=== PATIENT | female | born 1970 | race Caucasian/White ===

== ENCOUNTER → 2017-10-13 15:06 | Outpatient (CLI) | payer BC, SELFPAY ==
--- NOTE | 2017-10-13 15:53 | XR_ITS ---
XR foot RT min 3V HISTORY: ITS.REASON: Right heel pain ORDERING PHYSICIAN: PATTY Diaz PATIENT AGE: 46 years COMPARISON: None FINDINGS: No fracture or dislocation. No lytic or blastic change. There is normal mineralization.. The joint spaces are well-preserved. No significant degenerative/arthritic changes. No erosive changes evident. IMPRESSION: Negative, no acute finding
[2017-10-13 17:32] LABS: Basophils % 0.6 % (0.1-2.0); Eosinophils # 0.4 K/mm3 (0.0-0.4); Eosinophils % 5.7 % (0.1-12.0); Hematocrit 44.5 % (37.0-47.0); Hemoglobin 13.9 g/dL (12.2-16.2); Lymphocytes # 2.2 K/mm3 (0.7-4.5); Lymphocytes % 31.6 K/mm3 (10-50); Mean Corpuscular HGB Conc 31.2 g/dL (31.8-35.4); Mean Corpuscular Hemoglobin 27.7 pg (27.0-31.2); Mean Corpuscular Volume 88.8 fl (81-99); Monocytes # 0.5 K/mm3 (0.1-1.0); Monocytes % 6.5 % (1.7-9.3); Neutrophils % 55.6 % (37.0-80.0); Platelet Count 377 K/mm3 (142-424); Red Blood Count 5.01 M/mm3 (4.20-5.40); Red Cell Distribution Width 13.3 % (11.5-17.5); White Blood Count 7.1 K/mm3 (4.8-10.8)
[2017-10-13 18:16] LABS: Alanine Aminotransferase 20 U/L (12-78); Albumin Level 3.5 gm/dL (3.4-5.0); Albumin/Globulin Ratio 0.9 (1.1-1.8); Alkaline Phosphatase 71 U/L (46-116); Aspartate Amino Transferase 20 U/L (15-37); Bilirubin,Total 0.3 mg/dL (0.2-1.0); Blood Urea Nitrogen 9 mg/dL (7-18); Calcium 9.2 mg/dL (8.5-10.1); Carbon Dioxide 29 mmol/L (21.0-32.0); Chloride 102 mmol/L (98-107); Cholesterol 208 mg/dL (140-200); Creatinine,Serum 0.71 mg/dL (0.55-1.02); Estimated Glomerular Filt Rate 88 ml/min (>60); GFR (African American) 106 ML/MIN (>60); Globulin 3.7 gm/dl (1.3-3.2); Glucose 96 mg/dL (74-106); HDL Cholesterol 52 mg/dL (29-89); LDL Cholesterol 142 mg/dL (0-130); Sodium 139 mmol/L (136-145); Thyroid Stimulating Hormone 2.03 uIU/ml (0.358-3.740); Total Protein,Serum 7.2 gm/dL (6.4-8.2); Triglycerides 69 mg/dL (30-200); VLDL Cholesterol 14 mg/dL (0-40)
[2017-10-15 11:17] LABS: Vitamin D 25 Hydroxy 33.9 ng/mL (30.0-100.0)
== END ==
PROVIDERS: PCP Physician Assistant; Visit Provider Physician Assistant
DX: R05 Cough (principal); M79.671 Pain in right foot; E66.9 Obesity, unspecified; Z79.899 Other long term (current) drug therapy
CPT/HCPCS: 73630; 80053; 80061; 82652; 84436; 84443; 85025

== ENCOUNTER → 2018-11-29 13:11 | Outpatient (CLI) | payer BC, SELFPAY ==
--- NOTE | 2018-11-29 13:12 | CT_ITS ---
CT head/brain wo con HISTORY: ITS.REASON: headaches ORDERING PHYSICIAN: PATTY Clark PATIENT AGE: 48 years COMPARISON: None TECHNIQUE: Axial images obtained without contrast. Brain and bone windows reviewed. All CT scans at the facility use one or more dose reduction, viz: automated exposure control, ma/kV adjustment per patient size (including targeted exams where dose is matched to indication, i.e. head), or iterative reconstruction technique. FINDINGS: No midline shift, mass effect, intracranial hemorrhage, hydrocephalus, or extra-axial fluid collection is evident. The calvarium has an unremarkable appearance. No mastoid effusion. No sinus air-fluid levels.. IMPRESSION: Negative CT head without contrast. No acute finding
== END ==
PROVIDERS: PCP Physician Assistant; Visit Provider Physician Assistant
DX: R51 Headache (principal)
CPT/HCPCS: 70450

== ENCOUNTER → 2022-03-18 10:16 | Outpatient (CLI) | payer BC, SELFPAY ==
--- NOTE | 2022-03-18 10:19 | MM_ITS ---
PROCEDURE INFORMATION: Exam: Bilateral Screening 3D Mammography Exam date and time: 03/18/2022 10:17 AM Age: 51 years old Clinical indication: Screening examination TECHNIQUE: Imaging protocol: Bilateral Screening tomosynthesis and 2D mammography including computer-aided detection (CAD) when performed. COMPARISON: [facility] DIGITAL SCREEN BILATERAL 10/13/2018 8:59 AM FINDINGS: MAMMOGRAPHY: Breast composition: The breasts are almost entirely fatty. Mass: None. Architectural distortion: None. Calcifications: No suspicious calcifications. Asymmetric density: None. Skin thickening: None. Axillary adenopathy: None. IMPRESSION: No mammographic evidence of malignancy. Annual screening is recommended unless otherwise clinically indicated. ASSESSMENT: BI-RADS Category 1: Negative
== END ==
PROVIDERS: PCP Physician Assistant; Visit Provider Pediatrics
DX: Z12.31 Encounter for screening mammogram for malignant neoplasm of breast (principal)
CPT/HCPCS: 77063; 77067

== ENCOUNTER → 2022-04-21 14:20 | Outpatient (CLI) | payer BC, SELFPAY ==
[2022-04-21 14:33] LABS: Amphetamine/Metha Screen,Urine Positive ng/ml (<1000); Barbiturates Screen,Urine Negative ng/ml (<200)
[2022-04-21 14:34] LABS: Benzodiazepines Screen,Urine Negative ng/ml (<200)
[2022-04-21 14:35] LABS: Cannabinoid Screen,Urine Negative ng/ml (<50); Cocaine Screen,Urine Negative ng/ml (<300)
[2022-04-21 14:36] LABS: Methadone Screen,Urine Negative ng/ml (<300); Opiate Screen,Urine Negative ng/ml (<300)
[2022-04-21 14:37] LABS: Phencyclidine Screen,Urine Negative ng/ml (<25)
== END ==
PROVIDERS: PCP Physician Assistant; Visit Provider Physician Assistant
DX: F90.9 Attention-deficit hyperactivity disorder, unspecified type (principal)
CPT/HCPCS: 80305

== ENCOUNTER → 2022-05-20 10:34 | Outpatient (CLI) | payer BC, SELFPAY ==
--- NOTE | 2022-05-20 10:45 | XR_ITS ---
FINAL REPORT CLINICAL HISTORY: left elbow pain s/p fall FINDINGS: Left elbow Three views were obtained. There is no acute fracture or dislocation. No joint effusion is identified. The joint spaces appear normal. No soft tissue abnormality is identified. IMPRESSION: No acute process. Reviewed, Interpreted and Dictated by Pedro Pablo Subramanian III, MD Transcribed by Zoe Dent Authenticated and [facility]
== END ==
LOC: RAD 10:35
PROVIDERS: PCP Physician Assistant; Visit Provider Physician Assistant
DX: M25.522 Pain in left elbow (principal)
CPT/HCPCS: 73080

== ENCOUNTER → 2022-09-09 10:06 | Outpatient (CLI) | payer BC, SELFPAY ==
[2022-09-09 14:13] LABS: Basophils % 0.3 % (0.1-2.0); Eosinophils # 0.2 K/mm3 (0.0-0.4); Eosinophils % 1.9 % (0.1-12.0); Hematocrit 44.4 % (37.0-47.0); Hemoglobin 14.4 g/dL (12.2-16.2); Lymphocytes # 2.7 K/mm3 (0.7-4.5); Lymphocytes % 26.7 % (10-50); Mean Corpuscular HGB Conc 32.5 g/dL (31.8-35.4); Mean Corpuscular Hemoglobin 28.2 pg (27.0-31.2); Mean Corpuscular Volume 86.7 fl (81-99); Mean Platelet Volume 8.9 fl (7.4-10.4); Monocytes # 0.5 K/mm3 (0.1-1.0); Monocytes % 4.5 % (1.7-9.3); Neutrophils # 6.8 K/mm3 (1.8-7.8); Neutrophils % 66.9 % (37.0-80.0); Platelet Count 467 K/mm3 (142-424); Red Blood Count 5.12 M/mm3 (4.20-5.40); White Blood Count 10.2 K/mm3 (4.8-10.8)
[2022-09-09 14:21] LABS: Chloride 96 mmol/L (98-107); Potassium 4.4 mmoL/L (3.5-5.1); Sodium 138 mmol/L (136-145)
[2022-09-09 14:23] LABS: Alanine Aminotransferase 21 U/L (12-78); Aspartate Amino Transferase 29 U/L (14-36); Blood Urea Nitrogen 14 mg/dl (7-17); Estimated Glomerular Filt Rate 88 ml/min (>60); GFR (African American) 106 ML/MIN (>60)
[2022-09-09 14:24] LABS: Albumin Level 4.3 g/dl (3.5-5.0); Albumin/Globulin Ratio 1.4 (1.1-1.8); Alkaline Phosphatase 82 U/L (38-126); Anion Gap 19.4 mEq/L (5-15); Bilirubin,Total 0.5 mg/dl (0.2-1.3); Calcium 9.5 mg/dl (8.4-10.2); Carbon Dioxide 27 mmol/L (22.0-30.0); Chol/HDL Ratio 3.4 (1-3.5); Cholesterol 216 mg/dl (140-200); Globulin 3.1 g/dL (1.3-3.2); Glucose 83 mg/dl (74-100); HDL Cholesterol 63 mg/dl (40-60); Total Protein,Serum 7.4 g/dl (6.3-8.2); Triglycerides 105 mg/dl (30-150); VLDL Cholesterol 21 mg/dL (0-40)
[2022-09-09 14:34] LABS: NT Pro Brain Natriuretic Pep. < 20.0 pg/mL (0-125)
[2022-09-09 14:36] LABS: Hemoglobin A1C 5.1 % (4.0-6.0)
[2022-09-09 14:37] LABS: Direct LDL Cholesterol 139.21 mg/dL (100-129)
[2022-09-09 14:43] LABS: 25-OH Vitamin D, Total 23.2 ng/mL (30-100)
[2022-09-09 14:56] LABS: Thyroid Stimulating Hormone 0.14 uIU/mL (0.465-4.68)
== END ==
PROVIDERS: PCP Physician Assistant; Visit Provider Physician Assistant
DX: R06.09 Other forms of dyspnea (principal); F90.9 Attention-deficit hyperactivity disorder, unspecified type; I10 Essential (primary) hypertension; E55.9 Vitamin D deficiency, unspecified; E66.9 Obesity, unspecified; Z68.42 Body mass index [BMI] 45.0-49.9, adult
CPT/HCPCS: 80053; 80061; 82306; 83036; 83880; 84443; 85025

== ENCOUNTER → 2022-09-19 07:58 | Outpatient (CLI) | payer BC, SELFPAY ==
--- NOTE | 2022-09-19 07:59 | CA_ITS ---
FINAL REPORT CLINICAL HISTORY: HTN,OBESITY FINDINGS: Aorta velocity: 85 cm/sec Right kidney: 11.3 cm. No evidence of hydronephrosis or mass. Right intrarenal RI: 0.62-0.64 Right renal artery velocity: 162 cm/sec. Right RAR (Renal artery-Aortic Ratio): 1.9 Left Kidney: 13.4 cm. No evidence of hydronephrosis or mass. Left intrarenal RI: 0.44-0.59 Left renal artery velocity: 112 cm/sec. Left RAR (Renal Artery-Aortic Ratio): 1.32 IMPRESSION: No evidence of significant renal artery stenosis. CT angiogram or postcontrast MR angiogram would be more sensitive for evaluation of possible renal artery stenosis. Reviewed, Interpreted and Dictated by Satish Estrada MD Transcribed by Zoe Dent Authenticated and [facility]
--- NOTE | 2022-09-19 15:11 | CA_ITS ---
APPROVED REPORT Exam: Exercise Treadmill Technologist: Lu Arango, Ht: 5 ft 3 in Wt: 283 lbs BSA: 2.24 m2 HR: 83 bpm BP: 145/85 mmHg Medical History Medications: Lisinopril,,,,, Asa,,,,, Vit D3,,,,, BisOPROLOL,,,,, VoRtioxetine,,,,, AtoGEPANT,,,,, Lisdexam fetamine,,,,, Stress Test Details Test: Derrek HR Resting HR: 88 bpm Max Heart Rate (APMHR): 167.523811 bpm Max HR Achieved: 147 bpm Target HR (85% APMHR): 141.182948 bpm % of APMHR: 88.02 Recovery HR: 98 bpm BP Resting BP: 147.0/85.0 mmHg Max BP: 172.0/100.0 mmHg Recovery BP: 142.0/67.0 mmHg ECG Resting ECG: SR Clinical Exercise duration: 03:47 min Highest Stage Achieved: II Exercise capacity: 4.6 METs Stress ECG Conclusion Max HR: 147 % of PM: 88% Max BP: 172/100 METs: 4.6 Test stopped due to: Light headed Symptoms: SOA, light headed Arrhythmias/Ectopy: None ST-T Changes: None Conclusion: no ischemic changes Test Summary REST . . . . . . . Sitting REST 03:33 0.0 0.0 88 . 147/ 85 . . Stage 1 01:00 10.0 1.7 114 . . . . Stage 1 02:00 10.0 1.7 130 . . . . Stage 1 03:00 10.0 1.7 136 . 140/ 90 . . Stage 2 00:47 12.0 2.5 146 . . . Stop exercise at 03:47 RECOVERY 01:00 0.0 0.0 128 . 172/100 . . RECOVERY 02:00 0.0 0.0 109 . 172/100 . . RECOVERY 03:00 0.0 0.0 103 . 167/ 86 . . RECOVERY 04:00 0.0 0.0 93 . 167/ 86 . . RECOVERY 05:00 0.0 0.0 97 . 142/ 67 . . RECOVERY 05:01 0.0 0.0 97 . 142/ 67 . . Electronically signed by : Irwin Holm MD 09/22/2022 08:45:46
== END ==
PROVIDERS: PCP Physician Assistant; Visit Provider Physician Assistant
DX: R06.00 Dyspnea, unspecified (principal); R07.9 Chest pain, unspecified; R42 Dizziness and giddiness
CPT/HCPCS: 93017; 93976

== ENCOUNTER → 2022-10-10 14:35 | Outpatient (CLI) | payer BC, SELFPAY | LOC: RT 14:36 | PROVIDERS: PCP Physician Assistant; Visit Provider Physician Assistant | DX: R06.00 Dyspnea, unspecified (principal); R07.9 Chest pain, unspecified | CPT/HCPCS: 93306 ==

== ENCOUNTER 2023-03-03 13:13 | Emergency (ER) | payer BC, SELFPAY ==
[2023-03-03 13:30] VITALS: BP 154/89; PULSE 97; RESP 20; TEMP 36.8; O2SAT 99; BMI 45.6
--- NOTE | 2023-03-03 13:58 | XR_ITS ---
FINAL REPORT CLINICAL HISTORY: pain with movement, old injury, clicking above elbow and below elbow FINDINGS: Left forearm Two views were obtained. There is no acute fracture or dislocation. The joint spaces appear normal. No soft tissue abnormality is identified. IMPRESSION: No acute process. Reviewed, Interpreted and Dictated by Pedro Pablo Subramanian III, MD Transcribed by Zoe Dent Authenticated and [facility]
--- NOTE | 2023-03-03 13:58 | XR_ITS ---
FINAL REPORT CLINICAL HISTORY: pain fall from 1 yr ago, old injury pt feels clicking above and below elbow FINDINGS: Left humerus Two views were obtained. There is no acute fracture or dislocation. The joint spaces appear normal. No soft tissue abnormality is identified. IMPRESSION: No acute process. Reviewed, Interpreted and Dictated by Pedro Pablo Subramanian III, MD Transcribed by Zoe Dent Authenticated and [facility]
--- NOTE | 2023-03-03 13:58 | XR_ITS ---
FINAL REPORT CLINICAL HISTORY: pain with movement FINDINGS: Left elbow Three views were obtained. There is no acute fracture or dislocation. The joint spaces appear normal. No joint effusion is identified. No soft tissue abnormality is identified. IMPRESSION: No acute process. Reviewed, Interpreted and Dictated by Pedro Pablo Subramanian III, MD Transcribed by Zoe Dent Authenticated and [facility]
--- NOTE | 2023-03-03 13:59 | EXP.UTC ---
Discharge Plan Disposition Patient Disposition: Home, Self-Care Condition: Good Prescriptions Prescriptions: New methylprednisolone [Medrol (Reji)] 4 mg tablets,dose pack See Rx Instructions .Route .COMPLEX 6 Days Qty: 21 0RF Rx Instructions: taper pack; No Action cholecalciferol (vitamin D3) [Vitamin D3] 50 mcg (2,000 unit) tablet 2,000 unit PO DAILY Qty: 90 3RF atorvastatin 10 mg tablet 10 mg PO HS Qty: 90 3RF Jornay PM 80 mg capsule,del rel,ext rel sprink 80 mg PO HS Qty: 30 0RF Qulipta 10 mg Tablet 10 mg PO DAILY Referrals Follow up/Referrals: Karena Oden PA [Primary Care Provider] - See instructions Activity Restrictions/Add. Instructions Additional Instructions/Restrictions: Take medrol pack as prescribed Follow up with your Family Doctor for furhter evaluation and testing Return if needed Straight to ER if any life threatening symptoms Clinical Impressions Clinical Impression: Problem of left upper extremity Instructions Patient Instructions: Neuropathic Pain, Methylprednisolone, DI for Elbow Pain Discharge ED Provider: Radha Ortiz [facility] General Stated complaint: LT ARM PAIN FROM AO YEAR AGO Mode of Arrival: Ambulatory Source of Information: Patient Limitations: No Limitations Time Seen by Provider: 03/03/23 13:45 Description of Symptoms (Recalled from Triage Doc. by RN): PATIENT C/O PAIN TO LEFT ELBOW AND FOREARM WITH TINGLING TO HAND. SHE STATES SHE FELL IN MAY AND INJURED THAT ELBOW, BUT STATES PAIN HAS GOTTEN WORSE WITHIN THE PAST 3 WEEKS. PATIENT STATES PAIN IS WORSE WITH ROTATION HEENT Symptoms (Recalled from RN notes): No Resp Symptoms (Recalled from RN notes): No Skin Symptoms (Recalled from RN notes): No MS Symptoms (Recalled from RN notes): Yes Functional Status (Recalled from RN notes): WNL History of Present Illness Provider Complaint: Patient states that she fell in May and hurt her left elbow States that she had a knot there with some bruising and feels like the knot has never went all the down and she has been having pain in the arm ever since her fall and sometimes the pain is worse than others States that for the last couple of weeks she has been having pain in her left upper arm just above her elbow, elbow and forearm that is worse with movement States that certain ways she moves it sends pain down her arm and makes her fingers feel tingly States that she hasnt done anything to hurt it again but she is not sure if she may have over used it States that she feels like she has a pinched nerve Related Data Home Medications Medication Instructions Recorded Confirmed atogepant 10 mg tablet (Qulipta) 10 mg PO DAILY 03/03/23 03/03/23 Previous Rx's Medication Instructions Recorded cholecalciferol (vitamin D3) 50 2,000 unit PO DAILY #90 tabs 07/15/22 mcg (2,000 unit) tablet (Vitamin D3) atorvastatin 10 mg tablet 10 mg PO HS elevated cholesterol 09/18/22 #90 tabs methylphenidate HCl 80 mg 80 mg PO HS #30 ea 02/04/23 capsule,delayed release,ext release sprinkle (El PM) methylprednisolone 4 mg tablets in See Rx Instructions .Route 03/03/23 a dose pack (Medrol (Reji)) .COMPLEX 6 days #21 tabs Allergies Allergy/AdvReac Type Severity Reaction Status Date / Time venom-honey bee Allergy Severe Anaphylaxis Verified 02/04/23 10:45 lisinopril Allergy Verified 03/03/23 13:45 losartan AdvReac Mild Cough Verified 02/04/23 10:45 Worker's Comp Is this a Worker's Comp case?: No [facility] Disclaimer: The information contained in this section may have been updated after the patient was seen, as this information can be updated by other users. Medical History Abnormal electrocardiogram [ECG] [EKG] Abnormal weight Anxiety Chest pain Cough Dyspnea Hyperlipidemia Hypertension Metabolic syndrome Migraine headache Obesity Pain, heel Social History (Reviewed 01/10
[2023-03-03 14:40] VITALS: BP 154/89; PULSE 97; RESP 20; TEMP 36.8; O2SAT 99
== END 2023-03-03 16:24 | disposition home or self-care (01) ==
PROVIDERS: Emergency Provider Nurse Practitioner; PCP Physician Assistant
DX: S59.912A Unspecified injury of left forearm, initial encounter (principal); S49.92XA Unspecified injury of left shoulder and upper arm, initial encounter; I10 Essential (primary) hypertension; E78.5 Hyperlipidemia, unspecified; F41.9 Anxiety disorder, unspecified; E66.9 Obesity, unspecified; W19.XXXA Unspecified fall, initial encounter
CPT/HCPCS: 73060; 73080; 73090; 99204; 99212; G0463

== ENCOUNTER → 2023-04-07 14:15 | Outpatient (CLI) | payer BC, SELFPAY ==
--- NOTE | 2023-04-07 14:15 | MR_ITS ---
FINAL REPORT TECHNIQUE: Multiplanar MR without contrast CLINICAL HISTORY: left elbow pain. LATERAL SIDED PAIN. FELL 1 YEAR AGO ON ELBOW FINDINGS: The marrow signal pattern is normal. Specifically there is no evidence of bone contusion or fracture. A physiologic joint effusion is present. There is no osteochondral defect. Medial and lateral collateral ligaments are intact. Biceps and triceps tendons are unremarkable. Flexor tendons have a normal appearance. Extensor tendons are normal. IMPRESSION: Unremarkable MRI evaluation of the elbow Authenticated and [facility]
== END ==
LOC: RAD 14:15
PROVIDERS: PCP Physician Assistant; Visit Provider Physician Assistant
DX: M25.522 Pain in left elbow (principal)
CPT/HCPCS: 73221

== ENCOUNTER 2023-06-23 12:10 | Outpatient (CLI) | payer BC, SELFPAY ==
--- NOTE | 2023-06-23 12:17 | MM_ITS ---
PROCEDURE INFORMATION: Exam: MG Bilateral Screening 3D Mammography Exam date and time: 06/23/2023 12:25 PM Age: 52 years old Clinical indication: Screening examination TECHNIQUE: Imaging protocol: Bilateral Screening tomosynthesis and 2D mammography including computer-aided detection (CAD) when performed. COMPARISON: 1. MG MM DIG SCREENING MAMM BI W/CAD 03/18/2022 10:17 AM 2. MG BRYAN MOBILE BREAST TOMOSYNTHESIS SCREEN 10/01/2017 2:07 PM 3. SD [facility] [place] [facility] DIGITAL SCREEN BILATERAL 10/13/2018 8:59 AM FINDINGS: MAMMOGRAPHY: Breast composition: There are scattered areas of fibroglandular density. Mass: No suspicious masses. Architectural distortion: No suspicious distortion. Calcifications: No suspicious calcifications. Asymmetric density: None. Skin thickening: None. Axillary adenopathy: None. IMPRESSION: No mammographic evidence of malignancy. Annual screening is recommended unless otherwise clinically indicated. ASSESSMENT: BI-RADS Category 1: Negative
== END 2023-06-23 23:59 ==
LOC: RAD 12:11
PROVIDERS: PCP Physician Assistant; Visit Provider Physician Assistant
DX: Z12.31 Encounter for screening mammogram for malignant neoplasm of breast (principal)
CPT/HCPCS: 77063; 77067

== ENCOUNTER 2023-11-26 12:49 | Outpatient (CLI) | payer BC, SELFPAY ==
--- NOTE | 2023-11-26 12:50 | XR_ITS ---
FINAL REPORT CLINICAL HISTORY: left elbow pain FINDINGS: AP, oblique, and lateral views of the left elbow were obtained. There is no prior exam for comparison. There is no acute fracture or dislocation. Joint space is preserved. There is no joint effusion or other soft tissue abnormality. IMPRESSION: No acute osseous abnormality of the left elbow. Reviewed, Interpreted and Dictated by Arianna Torres MD Transcribed by Zoe Dent Authenticated and [facility]
== END 2023-11-26 23:59 | disposition home or self-care (01) ==
LOC: RAD 12:50
PROVIDERS: PCP Physician Assistant; Visit Provider Physician Assistant
DX: M25.522 Pain in left elbow (principal)
CPT/HCPCS: 73080